=== PATIENT | male | born 1970 | race Caucasian/White ===

== ENCOUNTER 2018-12-07 11:48 | Observation (INO) | payer MEDICARE, SELFPAY ==
[2018-12-07] VITALS (40 sets, daily range): BP systolic 94–150; BP diastolic 64–101; PULSE 101–133; RESP 6–43; TEMP 36.6–37; O2SAT 92–100
--- NOTE | 2018-12-07 12:02 | DI.CT_ITS ---
SYMPTOM/DIAGNOSIS: LLQ ABD PAIN ABDOMEN AND PELVIC CT: CT examination of the abdomen and pelvis was performed with a bolus infusion of 100 cc's of Omnipaque 350. Images obtained through the lung bases are unremarkable. Liver, spleen and pancreas appear normal. Gallbladder and bile ducts are CT normal. Adrenals and kidneys appear normal. Abdominal aorta is of normal diameter and no major vascular abnormality is seen. Small bilateral fat containing inguinal hernias noted. Appendix appears normal. There is wall thickening of the descending colon with associated pericolonic fat edema. No evidence of perforation or abscess formation. The findings are consistent with uncomplicated diverticulitis. CONCLUSION: Findings consistent with diverticulitis of the mid descending colon. No evidence of perforation or abscess formation.
--- NOTE | 2018-12-07 12:11 | ED.GENADUL_ITS ---
Discharge Plan Disposition Patient Disposition: [facility] INPATIENT Condition: Good Discharge Details Chief Complaint: Palpitatns Clinical Impression: Diverticulitis Primary Care Provider: Andi Neff ED Provider: Zeb Vanessa Home Meds and New Rx's Prescriptions: No Action Flovent HFA 220 mcg/actuation HFA aerosol inhaler 1 puff IH BID RF: 0 mometasone 50 mcg/actuation spray,non-aerosol 2 spray JOSE DAILY RF: 0 Stiolto Respimat 2.5-2.5 mcg/actuation mist 1 inh IH BID RF: 0 albuterol sulfate [Proventil HFA] 90 mcg/actuation HFA aerosol inhaler 2 puff IH Q4H PRN (Reason: bronchospasm) Qty: 18 RF: 11 albuterol sulfate 2.5 mg/0.5 mL solution for nebulization 2.5 mg IH Q4H PRN (Reason: shortness of breath or wheezing) Qty: 100 RF: 5 ibuprofen [IBU] 800 mg tablet 800 mg PO Q8H PRN (Reason: pain) Qty: 90 RF: 2 ipratropium-albuterol 0.5 mg-3 mg(2.5 mg base)/3 mL solution for nebulization 3 ml Inhalation ONCE Qty: 3 RF: 0 cholecalciferol (vitamin D3) 5,000 unit capsule 5,000 unit PO DAILY Qty: 90 RF: 3 calcium carbonate 600 mg calcium (1,500 mg) tablet 600 mg PO BID Qty: 180 RF: 3 Medical Decision Making This is a pleasant 48-year-old male with a past medical history of COPD, diverticulitis and 2 abdominal hernia surgeries who presents today for evaluation of left lower quadrant pain and palpitations. He has had 4 days of left lower quadrant pain, notable decreased appetite since then. He has had no vomiting or diarrhea or melena. Over the last 2 days he has had mild palpitations and heart racing-like sensation. He denies any fever or chills. He was seen initially by his PCP who recommended they come in immediately for further evaluation. Abdominal exam demonstrates left lower quadrant reproducible tenderness, no testicular pain or tenderness. Differential includes diverticulitis with abscess, perforation, severe dehydration, pyelonephritis. We will rehydrate, evaluate for potential abdominal at etiology, as well as perform an ACS work-up secondary to his notable tachycardia and palpitations. Patient does not want anything for pain at this time. 1:17 PM On reassessment patient's heart rate has mildly improved from his initial 130s to currently 115. Fluids are still running. CT scan results have returned, and per Dr. Solitario of radiology there is evidence of diverticulitis without abscess. The patient still feels comfortable. He continues to deny any chest pain, shortness of breath, pleuritic chest pain, history of PE, or history of cardiac disease. Troponin is normal, he has no white count or bandemia, electrolytes are normal. TSH is normal. If the patient's mild tachycardia persists, I do feel that it may be beneficial for overnight admission/observation. We will give Cipro Flagyl here for his first dose for his diverticulitis 3:21 PM Patient continues to remain mildly tachycardic, review of previous vital signs demonstrate that he does have a component of chronic tachycardia, however with his new infection, continued mild tachycardia, I do feel that 24-hour o bservation. With IV antibiotics and fluids would certainly be reasonable. I discussed the case with Dr Rene. I have extensively reviewed the treatment plan with the patient. I have addressed all patient concerns at this time. I have also discussed the plan with the admitting physician and they agree with the current assessment and plan and have agreed to assume responsibility for the patient. All parties demonstrate verbal understanding and agreement with our assessment and plan at this time. EKG 11: 58 Rate 132, intervals normal, sinus tachycardia, inverted T wave in V1, no significant ST elevations or depressions, no significant Q waves. No evidence of STEMI HPI General Date/Time Provider Initiated Documentation: 12/07/18 11:49 . HPI Narrative: This is a 48-year-old male with a past medical history of COPD, who presents today for evaluation of abdominal pain and palpitations. He was seen by his PCP and recommended coming here. Over the last 4 days he has had notable left lower quadrant abdominal pain. He has had diverticulitis in the past. He states that this feels slightly similar to it. Pain has been present worsening over the last 4 days, no significant radiation to the right lower quadrant, or the epigastric region. He denies any chest pain or shortness of breath. His palpitations began 2 days ago for which she describes as a heart racing sensation, he feels that it is been relatively continuous. He denies any vomiting, diarrhea, melena, acholic stool, hematemesis, hematochezia. He denies any dysuria or increased urinary frequency. He denies any testicular or scrotal pain. He has no other complaints modifying factors at this time. Related Data Home Medications Medication Instructions Recorded Confirmed fluticasone propionate 220 1 puff IH BID 04/05/18 12/07/18 mcg/actuation HFA aerosol inhaler mometasone 50 mcg/actuation nasal 2 spray JOSE DAILY 04/05/18 12/07/18 spray tiotropium 2.5 mcg-olodaterol 2.5 1 inh IH BID gm 04/05/18 12/07/18 mcg/actuation mist for inhalation albuterol sulfate HFA 90 2 puff IH Q4H PRN #18 gm 06/22/18 12/07/18 mcg/actuation aerosol inhaler cholecalciferol (vitamin D3) 5,000 5,000 unit PO DAILY #90 cap 09/12/18 12/07/18 unit capsule calcium carbonate 600 mg calcium 600 mg PO BID #180 tab 09/13/18 12/07/18 (1,500 mg) tablet albuterol sulfate concentrate 2.5 2.5 mg IH Q4H PRN #100 each 11/29/18 12/07/18 mg/0.5 mL solution for nebulization ibuprofen 800 mg tablet 800 mg PO Q8H PRN #90 tab 11/29/18 12/07/18 Previous Rx's Medication Instructions Recorded albuterol sulfate HFA 90 2 puff IH Q4H PRN #18 gm 06/22/18 mcg/actuation aerosol inhaler cholecalciferol (vitamin D3) 5,000 5,000 unit PO DAILY #90 cap 09/12/18 unit capsule calcium carbonate 600 mg calcium 600 mg PO BID #180 tab 09/13/18 (1,500 mg) tablet albuterol sulfate concentrate 2.5 2.5 mg IH Q4H PRN #100 each 11/29/18 mg/0.5 mL solution for nebulization ibuprofen 800 mg tablet 800 mg PO Q8H PRN #90 tab 11/29/18 Allergies Allergy/AdvReac Type Severity Reaction Status Date / Time oxycodone HCl [From Percocet] AdvReac Unverified 12/07/18 11:55 General Stated Complaint: Palpitatns HALINA: 2 Review of Systems Review of Systems All systems reviewed & are unremarkable except as noted in HPI and below PFSH Surgical History Repair of inguinal hernia (~2007) Family History Mother Asthma Daughter Brain tumor Depression Social History Smoking/Tobacco Use Status: Former Tobacco Use Alcohol Intake: current Alcohol Intake frequency: holidays/special occasions only Drug use: Never Substance use type: does not use What type of physical activity do you participate in: walking Duration: 45-60 minutes/day Do you feel safe in your relationship?: Yes Exam Narrative Exam Narrative: 1.Const: Well-nourished, Well-developed, appearing stated age 2.Eyes: PERRL, no conjunctival injection, and symmetrical lids. 3.ENT: Atraumatic external nose and ears. Moist MM. Neck: Symmetric, trachea midline, No thyromegaly. 4.CVS: +S1/S2, No murmurs or gallops. Peripheral pulses 2+ and equal in all extremities. Brisk capillary refill in all extremities. 5.RESP: Unlabored respiratory effort. Clear to auscultation bilaterally. No wheezes rales or rhonchi 6.GI: Soft, Nondistended, No hepatosplenomegaly. Mild to moderate left lower quadrant abdominal tenderness. Negative obturator and psoas sign. Negative heel strike test. No flank or CVA tenderness. Testicular exam demonstrates normal male genitalia, circumcised penis, bilaterally descended testicles with a normal cremasteric reflex. No pain at McBurney's point, negative Wick sign. No significant left upper quadrant abdominal pain peer 7.MSK: Normocephalic/Atraumatic, Extremities w/o deformity or ttp No cyanosis or clubbing, Normal movement of all extremities 8.Skin: Warm, Dry. No rashes or lesions. 9.Neuro: uppers edge burnisher II-XII grossly intact. Sensation grossly intact, no focal neurologic deficits. 10.Psych: (AAO) x3. Appropriate mood and affect Course Vital Signs Temperature 36.6 C 12/07/18 11:51 Pulse 131 H 12/07/18 11:51 Respiratory Rate 20 12/07/18 11:51 Blood Pressure 105/72 12/07/18 11:51 Pulse Oximetry 97 12/07/18 11:51 Temperature 36.6 C 12/07/18 11:51 Temperature Source Skin 12/07/18 11:51 Pulse 131 H 12/07/18 11:51 Respiratory Rate 20 12/07/18 11:51 Blood Pressure 105/72 12/07/18 11:51 Blood Pressure Position Sitting 12/07/18 11:51 Pulse Oximetry 97 12/07/18 11:51 Oxygen Delivery Method Room Air 12/07/18 11:51 Oxygen Flow Rate 0 12/07/18 11:51
[2018-12-07 12:19] LABS: Abs Immature Grans 0.01 k/cumm (0.0-0.09); Absolute Basophil Count 0.07 k/cumm (0.0-0.2); Absolute Eosinophil Count 0.14 k/cumm (0.0-0.7); Absolute Lymphocyte Count 2.92 k/cumm (1.2-3.4); Absolute Monocyte Count 0.67 k/cumm (0.11-0.7); Absolute Neutrophil Count 4.84 k/cumm (1.2-6.7); Basophils % 0.8; Eosinophils % 1.6; HCT 44.1 % (40.0-50.0); HGB 14.6 g/dL (13.5-17.5); Immature Grans % 0.1; Lactate-non-spesis 0.9 mmol/l (0.6-1.4); Lymphocytes % 33.8; Mean Corp. HGB Concentration 33.1 g/dL (32.0-36.0); Mean Corpuscular Hemoglobin 29.7 pg (27.0-33.0); Mean Corpuscular Volume 89.8 fL (80-95); Mean Platelet Volume 10.8 fL (8.0-11.0); Monocytes % 7.7; Platelet Count 195 x1000/uL (130-400); RBC 4.91 m/cumm (4.50-6.00); RBC Distribution Width 12.9 % (11.8-14.1); White Blood Cell Count 8.65 k/cumm (4.4-10.8)
[2018-12-07] MEDS: Normal Saline 1,000 ML 1000 ML IV ×2 (12:39→14:30)
[2018-12-07 12:48] LABS: PTT Activated 24.1 sec (21.0-31.4); Prothrombin Time 9.7 sec (9.3-11.0)
[2018-12-07 12:51] LABS: ALT 26 U/L (12-78); AST 14 U/L (15-37); Albumin 3.5 g/dL (3.4-5.0); Alkaline Phosphatase 71 U/L (46-116); Anion Gap 6.4 mmol/L (3-11); BUN 10 mg/dL (7-18); Bilirubin, Total 0.4 mg/dL (0.2-1.0); CO2 31.6 mmol/L (21.0-32.0); CREATININE 0.76 mg/dL (0.70-1.30); Chloride 101 mmol/L (98-107); Glucose 105 mg/dL (70-100); Lipase 159 U/L (73-393); Potassium 3.9 mmol/L (3.5-5.1); Sodium 139 mmol/L (136-145); TSH (W/Ref FT4) 0.73 uIU/mL (0.358-3.74); Total Protein 7.4 g/dL (6.4-8.2)
[2018-12-07 12:57] LABS: Calcium 9.3 mg/dL (8.5-10.1)
[2018-12-07 12:58] LABS: Troponin I < 0.02 ng/mL (0.00-0.06)
[2018-12-07] MEDS: Omnipaque 350 MG/ML 100 ML BTL IJ (12:59)
[2018-12-07] MEDS: Albuterol/Ipratropium 3 ML UPD VIAL UPD (13:16)
[2018-12-07] MEDS: CIPROFLOXACIN 400 MG/200 ML BAG 200 MG IVPB (13:21)
[2018-12-07 13:57] LABS: Bilirubin Negative (Negative); Blood Negative (Negative); Clarity Clear; Glucose Negative (Negative); Ketones Negative (Negative); Leukocyte Esterase Negative (Negative); Nitrite Negative (Negative); Urobilinogen 0.2 EU/dL (Up TO 0.2); pH 7.5 (5-8)
[2018-12-07] MEDS: metroNIDAZOLE 500 MG/100 ML BAG 100 MG IVPB (14:30)
--- NOTE | 2018-12-07 15:36 | HPE_ITS ---
Date of service: 12/07/18 Time of Service: 15:29 Assessment and Plan (1) Diverticulitis: Current visit: Yes Status: Acute Uncomplicated, recurrent Diverticulitis. Clear liquid diet, pain control, IV Antibiotics, and IVFs. Patient does not appear toxic, and is currently comfortable. Tachycardia is likely combination of acute illness, pain, and mild dehydration in patient with significant underlying lung disease with a history of tachycardia during bouts of illness. ECG checked and benign, with negative cardiac enzymes. Monitor. (2) COPD (chronic obstructive pulmonary disease): Current visit: Yes Status: Chronic Continue home inhalers, with duonebs prn. Patient reports breathing is at baseline. (3) DVT prophylaxis: Current visit: Yes Status: Acute SC Lovenox. History of Present Illness Chief Complaint: Abdominal Pain Narrative: 48 year old man with past history of COPD, being admitted from [facility] Emergency Department with a diagnosis of Acute Diverticulitis. Mr. Malagon has a past medical history significant for ongoing Tobacco use, COPD, Depression, and Bipolar discorder. He also verbally reports a past history of diverticulitis. The patient reports a 4 day history of abdominal pain reminiscent of his prior episode(s) of Diverticulitis. He was seen by his primary care provider, noted to be tachycardic with significant pain, and refe rred to the Emergency Department. Work-up in the ED was remarkable for a normal CBC, essentially normal CMP, Urinalysis, Lipase, Lactate, and Troponin. CT scan of his abdomen confirmed the diagnosis of diverticulitis, located in mid descending colon, without any evidence of perforation or abscess. Given his tachycardia that failed to resolve with Fluid resuscitation the patient was referred for admission for further evaluation and treatment. Review of Systems Review of Systems All systems reviewed & are unremarkable except as noted in HPI and below PFSH Medical History Vitamin D deficiency (Chronic) Bipolar disorder (Chronic) Depression (Chronic) COPD (chronic obstructive pulmonary disease) (Chronic) Surgical History Repair of inguinal hernia (~2007) Family History Mother Asthma Daughter Brain tumor Depression Social History Smoking/Tobacco Use Status: Former Tobacco Use Alcohol Intake: current Alcohol Intake frequency: holidays/special occasions only Drug use: Never Substance use type: does not use What type of physical activity do you participate in: walking Duration: 45-60 minutes/day Do you feel safe in your relationship?: Yes Additional Social history: , with adult children. Ongoing tobacco use, 1/2 to 1 pack daily with prior 2 ppd history, approximate 55 pack year history. Reports prior ETOH excess, none in 20 years. Denies illicit drugs. Meds Home Medications Medication Instructions Recorded Confirmed Type fluticasone propionate 220 1 puff IH BID 04/05/18 12/07/18 History mcg/actuation HFA aerosol inhaler mometasone 50 mcg/actuation nasal 2 spray JOSE DAILY 04/05/18 12/07/18 History spray tiotropium 2.5 mcg-olodaterol 2.5 1 inh IH BID gm 04/05/18 12/07/18 History mcg/actuation mist for inhalation albuterol sulfate HFA 90 2 puff IH Q4H PRN #18 gm 06/22/18 12/07/18 Rx mcg/actuation aerosol inhaler cholecalciferol (vitamin D3) 5,000 5,000 unit PO DAILY #90 cap 09/12/18 12/07/18 Rx unit capsule calcium carbonate 600 mg calcium 600 mg PO BID #180 tab 09/13/18 12/07/18 Rx (1,500 mg) tablet albuterol sulfate concentrate 2.5 2.5 mg IH Q4H PRN #100 each 11/29/18 12/07/18 Rx mg/0.5 mL solution for nebulization ibuprofen 800 mg tablet 800 mg PO Q8H PRN #90 tab 11/29/18 12/07/18 Rx ipratropium-albuterol 0.5 mg-3 3 ml INHALATION ONCE #3 ml 12/07/18 12/07/18 Clinic mg(2.5 mg base)/3 mL nebulization soln Allergies Allergy/AdvReac Type Severity Reaction Status Date / Time oxycodone HCl [From Percocet] AdvReac Unverified 12/07/18 11:55 Exam Narrative Exam Narrative: General: Patient appears comfortable, AAOX3, NAD Neck: Supple CV: Regular, tachycardic, S1S2, No rubs, murmurs, or gallops. Distant heart sounds. Pulmonary: Clear to auscultation bilaterally, no crackle or rhonchi. Mild diffuse wheezing. Abdomen: + Bowel Sounds, soft, nontender, nondistended Vascular: No lower extremity edema Neurologic: CN II-XII grossly intact. No focal deficits. Psych: Normal mood and affect. Results Labs : 12/07/18 12:10 12/07/18 12:10 Laboratory Results - last 24 hr 12/07/18 12/07/18 12/07/18 12:10 12:10 12:10 WBC 8.65 RBC 4.91 Hgb 14.6 Hct 44.1 MCV 89.8 MCH 29.7 MCHC 33.1 RDW 12.9 Plt Count 195 MPV 10.8 Immature Gran % 0.1 Neutrophils % 56.0 Lymphocytes % 33.8 Monocytes % 7.7 Eosinophils % 1.6 Basophils % 0.8 Absolute Neutrophils 4.84 Absolute Lymphocytes 2.92 Absolute Monocytes 0.67 Absolute Eosinophils 0.14 Absolute Basophils 0.07 PT INR APTT Sodium 139 Potassium 3.9 Chloride 101 Carbon Dioxide 31.6 Anion Gap 6.4 BUN 10 Creatinine 0.76 Estimated GFR/1.73 m2 >= 60.00 Glucose 105 H Lactate 0.9 Calcium 9.3 Total Bilirubin 0.4 AST 14 L ALT 26 Alkaline Phosphatase 71 Troponin I < 0.02 Total Protein 7.4 Albumin 3.5 Lipase 159 TSH 0.73 Urine Color Urine Clarity Urine pH Ur Specific [place] Urine Protein Urine Ketones Urine Blood Urine Nitrite Urine Bilirubin Urine Urobilinogen Ur Leukocyte Esterase Urine Glucose Patient ABO/Rh Antibody Screen 12/07/18 12/07/18 12/07/18 12:10 12:25 13:40 WBC RBC Hgb Hct MCV MCH MCHC RDW Plt Count MPV Immature Gran % Neutrophils % Lymphocytes % Monocytes % Eosinophils % Basophils % Absolute Neutrophils Absolute Lymphocytes Absolute Monocytes Absolute Eosinophils Absolute Basophils PT 9.7 INR 1.0 APTT 24.1 Sodium Potassium Chloride Carbon Dioxide Anion Gap BUN Creatinine Estimated GFR/1.73 m2 Glucose Lactate Calcium Total Bilirubin AST ALT Alkaline Phosphatase Troponin I Total Protein Albumin Lipase TSH Urine Color Yellow Urine Clarity Clear Urine pH 7.5 Ur Specific [place] 1.010 Urine Protein Negative Urine Ketones Negative Urine Blood Negative Urine Nitrite Negative Urine Bilirubin Negative Urine Urobilinogen 0.2 Ur Leukocyte Esterase Negative Urine Glucose Negative Patient ABO/Rh O Positive Antibody Screen Negative Last Vital Signs Temp 36.6 C 12/07/18 11:51 Pulse 107 H 12/07/18 13:45 Resp 15 12/07/18 13:50 BP 114/81 12/07/18 13:45 Pulse Ox 97 12/07/18 13:50
[2018-12-07] MEDS: Enoxaparin 40 MG/0.4 ML SYR SC (16:45)
--- NOTE | 2018-12-07 18:44 | NUR.NOTE ---
Nursing Note: Pt to MS floor from ER at 1610. Family at bedside. Pt transferred from wheelchair to bathroom and bed independently; steady gait with increased SOB noted. A&Ox3. VSS 95% 2L NC. RT alerted to pt's arrival. Pt on Cpap and O2 therapy at home. Pt and family oriented to MS floor, call kay, etc. Call kay within reach. RN will continue to monitor.
[2018-12-07] MEDS: Calcium Carbonate 1.5 GM TAB PO (19:50)
[2018-12-07] MEDS: Mometasone 220 MCG 14 DOSE INHALER 2 PUFF IH (19:51)
[2018-12-07] MEDS: Normal Saline 1,000 ML 150 ML IV (21:12)
[2018-12-07] MEDS: metroNIDAZOLE 500 MG TAB PO (22:25)
[2018-12-08] MEDS: Normal Saline Flush 10 ML SYR IVP (00:04)
[2018-12-08] MEDS: Normal Saline 1,000 ML 150 ML IV ×2 (00:04→05:08)
[2018-12-08] MEDS: CIPROFLOXACIN 400 MG/200 ML BAG 200 MG IVPB (03:16)
[2018-12-08] MEDS: metroNIDAZOLE 500 MG TAB PO (05:08)
[2018-12-08 07:17] LABS: Abs Immature Grans 0.01 k/cumm (0.0-0.09); Absolute Basophil Count 0.04 k/cumm (0.0-0.2); Absolute Eosinophil Count 0.17 k/cumm (0.0-0.7); Absolute Lymphocyte Count 2.09 k/cumm (1.2-3.4); Absolute Monocyte Count 0.51 k/cumm (0.11-0.7); Basophils % 0.7; HCT 36.5 % (40.0-50.0); Immature Grans % 0.2; Lymphocytes % 36.3; Mean Corp. HGB Concentration 32.9 g/dL (32.0-36.0); Mean Corpuscular Volume 91.3 fL (80-95); Mean Platelet Volume 11.1 fL (8.0-11.0); Monocytes % 8.9; Neutrophils % 50.9; Platelet Count 161 x1000/uL (130-400); RBC Distribution Width 12.6 % (11.8-14.1); White Blood Cell Count 5.76 k/cumm (4.4-10.8)
[2018-12-08 07:19] LABS: Absolute Neutrophil Count 2.93 k/cumm (1.2-6.7)
[2018-12-08 07:20] VITALS: BP 115/84; PULSE 87; RESP 18; TEMP 36.6; O2SAT 98
[2018-12-08] MEDS: Ibuprofen 800 MG TAB PO (07:31)
[2018-12-08] MEDS: Calcium Carbonate 1.5 GM TAB PO (07:31)
[2018-12-08 07:35] LABS: Anion Gap 4.7 mmol/L (3-11); BUN 5 mg/dL (7-18); CO2 32.3 mmol/L (21.0-32.0); CREATININE 0.74 mg/dL (0.70-1.30); Chloride 106 mmol/L (98-107); Glucose 94 mg/dL (70-100); Magnesium 1.8 mg/dL (1.8-2.4); Potassium 3.8 mmol/L (3.5-5.1); Sodium 143 mmol/L (136-145)
[2018-12-08 07:47] LABS: Calcium 8.6 mg/dL (8.5-10.1)
[2018-12-08 08:23] VITALS: O2SAT 98
[2018-12-08] MEDS: Mometasone 220 MCG 14 DOSE INHALER 2 PUFF IH (09:13)
[2018-12-08] MEDS: Potassium Chloride 20 MEQ TABCR PO (10:03)
[2018-12-08] MEDS: Magnesium Oxide 400 MG TAB PO (10:03)
--- NOTE | 2018-12-08 11:33 | PDOC.CMPRO ---
Care Management Progress Note Jakob was preparing for discharge when CM met with him. He was sitting on the side of his bed, and was pleasant in interaction. Jakob shared no concerns. Kelsi RT reported she would be following Jakob in the community to help support Jakob attaining portable oxygen through [employer]. Jakob shared appreciation of his care and reported he would be transporting via private vehicle with his .
--- NOTE | 2018-12-08 12:04 | DSE_ITS ---
DS: Diagnosis Discharge Diagnosis (1) Diverticulitis: Status: Acute (2) COPD (chronic obstructive pulmonary disease): Status: Chronic Discharge Plan Disposition Patient Disposition: HOME Condition: Improving Discharge Details Reason For Visit: DIVERTICULITIS Admit Date/Time: 12/07/18 14:49 Admit Provider: Shilo Rene Attending Provider: Shilo Rene Primary Care Provider: Andi Neff Hospital Course Hospital Course: Chief Complaint: Abdominal Pain, Tachycardia HPI: 48 year old man with past history of COPD, admitted from [facility] Emergency Department on 12/07 with a diagnosis of Acute Diverticulitis. Mr. Malagon has a past medical history significant for ongoing Tobacco use, COPD, Depression, and Bipolar discorder. He also verbally reports a past history of diverticulitis. The patient reports a 4 day history of abdominal pain reminiscent of his prior episode(s) of Diverticulitis. He was seen by his primary care provider, noted to be tachycardic with significant pain, and referred to the Emergency Department. Work-up in the ED was remarkable for a normal CBC, essentially normal CMP, Urinalysis, Lipase, Lactate, and Troponin. CT scan of his abdomen confirmed the diagnosis of diverticulitis, located in mid descending colon, without any evidence of perforation or abscess. Given his tachycardia that failed to resolve with Fluid resuscitation the patient was referred for admission for further evaluation and treatment. This morning Mr. Malagon continues to be afebrile and with a normal WBC count. His HR is vastly improved, and he reports overall improvement in his abdominal pain as well. No other overnight events reported. Hospital Course: (1) Diverticulitis: Uncomplicated, recurrent Diverticulitis. Appears improved. Will continue with antibiotics for a planned 10 day course of Cipro/Metronidazole. Recommend Clear liquid diet at home with slow progression as pain abates, with close follow-up as an outpatient. Also, as this is a recurrent problem he may require further evaluation by surgery as an outpatient. Patient remains nontoxic, and is currently comfortable. Tachycardia is likely combination of acute illness, pain, and mild dehydration in patient with significant underlying lung disease with a history of tachycardia during bouts of illness, vastly improved/resolved this morning. ECG checked and benign, with negative cardiac enzymes as well. (2) COPD (chronic obstructive pulmonary disease): Continue home inhalers, with duonebs prn. Patient reports breathing is at baseline. (3) DVT prophylaxis: Was maintained on SC Lovenox. Home Meds and New Rx's Prescriptions: New ciprofloxacin HCl 500 mg tablet 500 mg PO BID Qty: 18 RF: 0 metronidazole 500 mg tablet 500 mg PO TID Qty: 27 RF: 0 Continued Flovent HFA 220 mcg/actuation HFA aerosol inhaler 1 puff IH BID RF: 0 mometasone 50 mcg/actuation spray,non-aerosol 2 spray JOSE DAILY RF: 0 Stiolto Respimat 2.5-2.5 mcg/actuation mist 1 inh IH BID RF: 0 albuterol sulfate [Proventil HFA] 90 mcg/actuation HFA aerosol inhaler 2 puff IH Q4H PRN (Reason: bronchospasm) Qty: 18 RF: 11 albuterol sulfate 2.5 mg/0.5 mL solution for nebulization 2.5 mg IH Q4H PRN (Reason: shortness of breath or wheezing) Qty: 100 RF: 5 ibuprofen [IBU] 800 mg tablet 800 mg PO Q8H PRN (Reason: pain) Qty: 90 RF: 2 ipratropium-albuterol 0.5 mg-3 mg(2.5 mg base)/3 mL solution for nebulization 3 ml Inhalation ONCE Qty: 3 RF: 0 cholecalciferol (vitamin D3) 5,000 unit capsule 5,000 unit PO DAILY Qty: 90 RF: 3 calcium carbonate 600 mg calcium (1,500 mg) tablet 600 mg PO BID Qty: 180 RF: 3 Discharge Instructions Additional Instructions: Please see your primary care provider within 1 week of discharge Stand Alone Forms: Nursing Discharge Form Referrals: Andi Neff [Primary Care Provider] - 12/13/18 3:00 pm Activity:: No strenuous activity Equipment/Supplies:: No Equipment Needed Diet:: Liquid diet until pain has improved/resolved Discharge Orders Discharge Orders: Discharge Order (Routine); Ordered 12/08/18 Ordered By: Shilo Rene DS: Data Vitals/I&O Vitals and I&O: Vital Signs Temperature 36.6 C 12/08/18 07:20 Temperature Source Tympanic 12/08/18 07:20 Pulse 87 12/08/18 07:20 Pulse Rhythm Regular 12/08/18 07:32 Pulse 109 H 12/07/18 15:57 Respiratory Rate 18 12/08/18 07:20 Respiratory Effort Non-Labored 12/08/18 07:32 Respiratory Depth Normal 12/08/18 07:32 Respiratory Pattern Normal 12/08/18 07:32 Blood Pressure 115/84 12/08/18 07:20 Blood Pressure Mean 72 12/07/18 15:57 Blood Pressure Position Sitting 12/07/18 11:51 Pulse Oximetry 98 12/08/18 08:23 Oxygen Delivery Method Nasal Cannula 12/08/18 08:23 Oxygen Flow Rate 2 12/08/18 08:23 Pain Level 0 12/08/18 07:20 Comment 12/08/18 07:20 Intake & Output 12/07/18 12/07/18 12/08/18 11:59 23:59 11:59 Intake Total 3490 / 3490 3580.0 / 3580.0 Output Total 900 / 900 2700 / 2700 Balance 2590 / 2590 880.0 / 880.0 Weight 79.379 kg 79.379 kg Intake: IV 2710 / 2710 2330.0 / 2330.0 Oral 780 / 780 1250 / 1250 Output: Urine 900 / 900 2700 / 2700 Other: Urine Color Yellow Pale Yellow Urine Appearance Clear Clear Urine Odor Normal Normal Comment Pt reports frequency with urination; no other sx. reported. Pt removed hat from toilet. Urine clear and yellow. Voiding Methods Urinal Urinal Completed studies during hospitalization [Text1]: Exam(s) a CT:CT abdomen & pelvis w SYMPTOM/DIAGNOSIS: LLQ ABD PAIN ABDOMEN AND PELVIC CT: CT examination of the abdomen and pelvis was performed with a bolus infusion of 100 cc's of Omnipaque 350. Images obtained through the lung bases are unremarkable. Liver, spleen and pancreas appear normal. Gallbladder and bile ducts are CT normal. Adrenals and kidneys appear normal. Abdominal aorta is of normal diameter and no major vascular abnormality is seen. Small bilateral fat containing inguinal hernias noted. Appendix appears normal. There is wall thickening of the descending colon with associated pericolonic fat edema. No evidence of perforation or abscess formation. The findings are consistent with uncomplicated diverticulitis. CONCLUSION: Findings consistent with diverticulitis of the mid descending colon. No evidence of perforation or abscess formation. Labs on day of discharge: Labs from last 24 hours 12/08/18 12/08/18 12/07/18 06:25 06:25 13:40 WBC 5.76 D RBC 4.00 L Hgb 12.0 L D Hct 36.5 L MCV 91.3 MCH 30.0 MCHC 32.9 RDW 12.6 Plt Count 161 MPV 11.1 H Immature Gran % 0.2 Neutrophils % 50.9 Lymphocytes % 36.3 Monocytes % 8.9 Eosinophils % 3.0 Basophils % 0.7 Absolute Neutrophils 2.93 Absolute Lymphocytes 2.09 Absolute Monocytes 0.51 Absolute Eosinophils 0.17 Absolute Basophils 0.04 PT INR APTT Sodium 143 Potassium 3.8 Chloride 106 Carbon Dioxide 32.3 H Anion Gap 4.7 BUN 5 L Creatinine 0.74 Estimated GFR/1.73 m2 >= 60.00 Glucose 94 Lactate Calcium 8.6 Magnesium 1.8 Total Bilirubin AST ALT Alkaline Phosphatase Troponin I Total Protein Albumin Lipase TSH Urine Color Yellow Urine Clarity Clear Urine pH 7.5 Ur Specific [place] 1.010 Urine Protein Negative Urine Ketones Negative Urine Blood Negative Urine Nitrite Negative Urine Bilirubin Negative Urine Urobilinogen 0.2 Ur Leukocyte Esterase Negative Urine Glucose Negative Patient ABO/Rh Antibody Screen 12/07/18 12/07/18 12/07/18 12:25 12:10 12:10 WBC 8.65 RBC 4.91 Hgb 14.6 Hct 44.1 MCV 89.8 MCH 29.7 MCHC 33.1 RDW 12.9 Plt Count 195 MPV 10.8 Immature Gran % 0.1 Neutrophils % 56.0 Lymphocytes % 33.8 Monocytes % 7.7 Eosinophils % 1.6 Basophils % 0.8 Absolute Neutrophils 4.84 Absolute Lymphocytes 2.92 Absolute Monocytes 0.67 Absolute Eosinophils 0.14 Absolute Basophils 0.07 PT 9.7 INR 1.0 APTT 24.1 Sodium Potassium Chloride Carbon Dioxide Anion Gap BUN Creatinine Estimated GFR/1.73 m2 Glucose Lactate Calcium Magnesium Total Bilirubin AST ALT Alkaline Phosphatase Troponin I Total Protein Albumin Lipase TSH Urine Color Urine Clarity Urine pH Ur Specific [place] Urine Protein Urine Ketones Urine Blood Urine Nitrite Urine Bilirubin Urine Urobilinogen Ur Leukocyte Esterase Urine Glucose Patient ABO/Rh O Positive Antibody Screen Negative 12/07/18 12/07/18 12:10 12:10 WBC RBC Hgb Hct MCV MCH MCHC RDW Plt Count MPV Immature Gran % Neutrophils % Lymphocytes % Monocytes % Eosinophils % Basophils % Absolute Neutrophils Absolute Lymphocytes Absolute Monocytes Absolute Eosinophils Absolute Basophils PT INR APTT Sodium 139 Potassium 3.9 Chloride 101 Carbon Dioxide 31.6 Anion Gap 6.4 BUN 10 Creatinine 0.76 Estimated GFR/1.73 m2 >= 60.00 Glucose 105 H Lactate 0.9 Calcium 9.3 Magnesium Total Bilirubin 0.4 AST 14 L ALT 26 Alkaline Phosphatase 71 Troponin I < 0.02 Total Protein 7.4 Albumin 3.5 Lipase 159 TSH 0.73 Urine Color Urine Clarity Urine pH Ur Specific [place] Urine Protein Urine Ketones Urine Blood Urine Nitrite Urine Bilirubin Urine Urobilinogen Ur Leukocyte Esterase Urine Glucose Patient ABO/Rh Antibody Screen [facility] Medical History Vitamin D deficiency (Chronic) Bipolar disorder (Chronic) Depression (Chronic) COPD (chronic obstructive pulmonary disease) (Chronic) Surgical History Repair of inguinal hernia (~2007) Family History Mother Asthma Daughter Brain tumor Depression Social History Smoking/Tobacco Use Status: Former Tobacco Use Alcohol Intake: current Alcohol Intake frequency: holidays/special occasions only Drug use: Never Substance use type: does not use What type of physical activity do you participate in: walking Duration: 45-60 minutes/day Do you feel safe in your relationship?: Yes Additional Social history: , with adult children. Ongoing tobacco use, 1/2 to 1 pack daily with prior 2 ppd history, approximate 55 pack year history. Reports prior ETOH excess, none in 20 years. Denies illicit drugs.
== END 2018-12-08 12:50 | disposition home or self-care (01) ==
LOC: ER 15:30 → MS 16:16
PROVIDERS: Admitting Provider Internal Medicine; Emergency Provider Student in an Organized Health Care Education/Training Program; PCP Family Medicine; Visit Provider Internal Medicine
DX: K57.92 Diverticulitis of intestine, part unspecified, without perforation or abscess without bleeding (principal); R10.32 Left lower quadrant pain; R00.0 Tachycardia, unspecified; E86.0 Dehydration; J44.9 Chronic obstructive pulmonary disease, unspecified; F17.210 Nicotine dependence, cigarettes, uncomplicated
CPT/HCPCS: 36415; 80048; 80053; 83690; 86850; 86900; 86901; 93005; 94640; 96361; 96365; 96367; 99217; 99219; 99285; J1650; 74177; 81003; 83605; 83735; 84443; 84484; 85025; 85610; 85730; 93010; G0378; J0744; J3490; J7620

== ENCOUNTER 2022-04-07 10:35 | Inpatient (IN) | payer MEDICARE, MEDICAID, SELFPAY ==
[2022-04-07] VITALS (77 sets, daily range): BP systolic 97–183; BP diastolic 64–129; PULSE 86–167; RESP 1–25; TEMP 36.4–37.4; O2SAT 83–98
--- NOTE | 2022-04-07 10:30 | DI.RAD_ITS ---
Exam(s) XR PORTABLE CHEST AP EXAM: XR PORTABLE CHEST AP CLINICAL HISTORY: shortness of breath, r/o acute disease TECHNIQUE: 2D digital imaging was performed. COMPARISON: CR CHEST 2 VIEWS PA,LAT from 02/06/2017 CR CHEST 2 VIEWS PA,LAT from 09/23/[address] ABDOMEN PELVIS W from 12/07/2018 FINDINGS: LUNGS: Severe emphysematous changes and scarring greatest in the upper lobes.. Superimposed increase d densities bilateral bases could represent bilateral pneumonia. No effusion is visible. HEART: Normal. AORTA: Normal. BONES: Unremarkable for age. Soft tissues: Unremarkable. IMPRESSION: Severe emphysematous changes with question of superimposed bibasilar infiltrates. DATA REPOSITORY: RADIATION DOSE DELIVERED:
--- NOTE | 2022-04-07 10:30 | RT.EKG_ITS ---
APPROVED REPORT Exam: Resting ECG Reason for Exam: difficulty breathing Patient Location: E HR:144 bpm ECG Measurements Heart Rate 144 AXIS MD 113 P 77 QRSd 91 QRS 80 QT 257 T 52 QTc 398 Conclusion Sinus tachycardia...rate> 99. Sinus. No STEMI. I have reviewed and interpreted ECG and agree with software generated interpretation.
--- NOTE | 2022-04-07 10:43 | W.ED.GENAD ---
Discharge Plan Disposition Patient Disposition: [facility] INPATIENT Condition: Improving Discharge Details Clinical Impression: Acute exacerbation of chronic obstructive pulmonary disease, Pneumonia Admit Date/Time: 04/07/22 13:15 Admit Provider: Ki Paul Attending Provider: Ki Paul Primary Care Provider: Lexie Valencia ED Provider: Valencia Walters Discharge Data Discharge Date/Time-TO BE ENTERED AT DEPARTURE: 04/07/22 14:17 Medical Decision Making 1035 -- 52-year-old male with a history of COPD chronically on 3L NC, former tobacco smoker, sleep apnea, bipolar disorder, hyperlipidemia, ADD presents for shortness of breath this morning. EMS reported O2 sat 90% with diminished breath sounds and wheezing throughout and placed on CPAP and given IV Solu-Medrol and DuoNeb with improvement of oxygen saturation to 98% prior to arrival. Blood pressure hypertensive with systolic between 160s and 180s and diastolic in the 100s on arrival. Heart rate 130s to 140s and sinus tachycardia. He is afebrile. Oxygen saturation 94% on CPAP. Respiratory at bedside and placed on BiPAP and will continue albuterol neb. arrived shortly after and provided patient's POLST form which notes that he is DNR/DNI as of January 2022. This was confirmed with patient at bedside. 1100 --patient endorsed feeling anxious and nauseous and dry heaving and taken off BiPAP briefly. O2 sat decreased to 70% on NC. Given a dose of IV Zofran and confirmed no history of allergy to morphine and a dose of IV morphine ordered. at bedside who states that patient had a pneumothorax following a ruptured bleb in August 16 in [place]. No recent hospitalization in the last 3 months. She confirms that patient is DNR/DNI but would like treatment for COPD and pneumonia if diagnosed. She states he would be agreeable to admission. 1200 -- Labs reviewed. White blood cell count 14. ABG notes pH of 7.25, PCO2 68, PO2 37. Lactate 2.1. Troponin negative. BNP within normal limits. Fluvid negative. Chest x-ray notes severe emphysematous changes but no evidence of pneumothorax. There is also questionable bibasilar infiltrates. In the setting of leukocytosis and report of cough and recent sick contacts, will treat for pneumonia. Patient appears much more comfortable and no signs of respiratory distress. Will continue on BiPAP at this time heart rate remains tachycardic. states that patient has a history of tachycardia for which he takes diltiazem. She denies any known history of atrial fibrillation. Heart rate has been sinus on the monitor. We will give a dose of patient's p.o. diltiazem. 1300 --repeat ABG notes improvement of pH to 7.38, PCO2 improved to 56 and PO2 92. Patient is agreeable with plan for admission for acute COPD exacerbation and possible pneumonia. Case discussed with hospitalist who accepts patient for admission. Medical Records Medical records reviewed: Yes I reviewed the patient's medical records. Imaging Data Radiologic Study: Radiologist's impression: XR PORTABLE CHEST AP CLINICAL HISTORY:? shortness of breath, r/o acute disease TECHNIQUE:? 2D digital imaging was performed. COMPARISON:? CR CHEST 2 VIEWS PA,LAT from 02/06/2017 CR CHEST 2 VIEWS PA,LAT from 09/23/[address] ABDOMEN ? PELVIS W from 12/07/2018 FINDINGS: LUNGS: Severe emphysematous changes and scarring greatest in the upper lobes..? Superimposed increased densities bilateral bases could represent bilateral pneumonia.? No effusion is visible. HEART: Normal. AORTA: Normal. BONES: Unremarkable for age.? Soft tissues: Unremarkable. IMPRESSION: Severe emphysematous changes with question of superimposed bibasilar infiltrates.? Lab Data Lab results reviewed: Yes I reviewed the patient's lab results. Labs: 04/07/22 12:12 Blood Blood Culture - Pending 04/07/22 12:12 Blood Blood Culture - Pending Laboratory Tests Range/Units 04/07/22 04/07/22 04/07/22 10:43 10:43 10:43 WBC (4.4-10.8) 10^3/uL 14.02 H RBC (4.36-5.78) 10^6/uL 4.84 Hgb (13.5-17.5) g/dL 14.1 Hct (40.0-50.0) % 43.6 MCV (80-95) fL 90 MCH (27.0-33.0) pg 29.1 MCHC (32.0-36.0) % 32.3 RDW (11.8-14.1) % 12.6 Plt Count (130-400) 10^3/uL 208 MPV (8.0-11.0) fL 11.0 Immature Gran % 0.4 Neutrophils % 55.7 Lymphocytes % 32.9 Monocytes % 9.6 Eosinophils % 0.6 Basophils % 0.8 Nucleated RBC % (0.0-0.3) % 0.0 Absolute Neutrophils (1.2-6.7) 10^3/uL 7.81 H Absolute Lymphocytes (1.2-3.4) 10^3/uL 4.61 H Absolute Monocytes (0.1-0.8) 10^3/uL 1.35 H Absolute Eosinophils (0.0-0.7) 10^3/uL 0.08 Absolute Basophils (0.0-0.2) 10^3/uL 0.11 ABG Sample Site ABG pH (7.35-7.45) ABG pCO2 (35-45) mmHg ABG pO2 (80-105) mmHg ABG HCO3 (22-26) mmol/L ABG Total CO2 (23-27) mmol/L ABG O2 Saturation (95-98) % ABG Base Excess (-2-3) mmol/L Oxygen Liter Flow L FiO2 % Sodium (136-145) mmol/L 143 Potassium (3.5-5.1) mmol/L 3.7 Chloride (98-107) mmol/L 103 Carbon Dioxide (21.0-32.0) mmol/L 35.8 H Anion Gap (3-11) mmol/L 4.2 BUN (7-18) mg/dL 14 Creatinine (0.70-1.30) mg/dL 1.0 Est GFR (CKD-EPI 2020) (mL/min/1.73m2) 89.44 Glucose (74-106) mg/dL 115 H Calcium (8.5-10.1) mg/dL 8.9 Magnesium (1.8-2.4) mg/dL 1.8 Total Bilirubin (0.2-1.0) mg/dL 0.3 AST (15-37) U/L 15 ALT (16-63) U/L 32 Alkaline Phosphatase (46-116) U/L 84 Troponin I (<or=60) ng/L < 50 NT-Pro-B Natriuret Pep (<300) pg/mL 41 Total Protein (6.4-8.2) g/dL 7.8 Albumin (3.4-5.0) g/dL 4.1 COVID-19 Source SARS-CoV-2 (PCR) (Negative) Influenza Type A (PCR) (Negative) Influenza Type B (PCR) (Negative) RSV (PCR) (Negative) Range/Units 04/07/22 04/07/22 04/07/22 10:43 11:03 11:09 WBC (4.4-10.8) 10^3/uL RBC (4.36-5.78) 10^6/uL Hgb (13.5-17.5) g/dL Hct (40.0-50.0) % MCV (80-95) fL MCH (27.0-33.0) pg MCHC (32.0-36.0) % RDW (11.8-14.1) % Plt Count (130-400) 10^3/uL MPV (8.0-11.0) fL Immature Gran % Neutrophils % Lymphocytes % Monocytes % Eosinophils % Basophils % Nucleated RBC % (0.0-0.3) % Absolute Neutrophils (1.2-6.7) 10^3/uL Absolute Lymphocytes (1.2-3.4) 10^3/uL Absolute Monocytes (0.1-0.8) 10^3/uL Absolute Eosinophils (0.0-0.7) 10^3/uL Absolute Basophils (0.0-0.2) 10^3/uL ABG Sample Site Right Radial Cancelled ABG pH (7.35-7.45) 7.25 L Cancelled ABG pCO2 (35-45) mmHg 68 H* Cancelled ABG pO2 (80-105) mmHg 37 L* Cancelled ABG HCO3 (22-26) mmol/L 30 H Cancelled ABG Total CO2 (23-27) mmol/L 28 H Cancelled ABG O2 Saturation (95-98) % 64 L Cancelled ABG Base Excess (-2-3) mmol/L 3 Cancelled Oxygen Liter Flow L BIPAP 12/ Cancelled FiO2 % 40 Cancelled Sodium (136-145) mmol/L Potassium (3.5-5.1) mmol/L Chloride (98-107) mmol/L Carbon Dioxide (21.0-32.0) mmol/L Anion Gap (3-11) mmol/L BUN (7-18) mg/dL Creatinine (0.70-1.30) mg/dL Est GFR (CKD-EPI 2020) (mL/min/1.73m2) Glucose (74-106) mg/dL Calcium (8.5-10.1) mg/dL Magnesium (1.8-2.4) mg/dL Total Bilirubin (0.2-1.0) mg/dL AST (15-37) U/L ALT (16-63) U/L Alkaline Phosphatase (46-116) U/L Troponin I (<or=60) ng/L NT-Pro-B Natriuret Pep (<300) pg/mL Total Protein (6.4-8.2) g/dL Albumin (3.4-5.0) g/dL COVID-19 Source Not Applicable SARS-CoV-2 (PCR) (Negative) Negative Influenza Type A (PCR) (Negative) Negative Influenza Type B (PCR) (Negative) Negative RSV (PCR) (Negative) Negative Range/Units 04/07/22 12:30 WBC (4.4-10.8) 10^3/uL RBC (4.36-5.78) 10^6/uL Hgb (13.5-17.5) g/dL Hct (40.0-50.0) % MCV (80-95) fL MCH (27.0-33.0) pg MCHC (32.0-36.0) % RDW (11.8-14.1) % Plt Count (130-400) 10^3/uL MPV (8.0-11.0) fL Immature Gran % Neutrophils % Lymphocytes % Monocytes % Eosinophils % Basophils % Nucleated RBC % (0.0-0.3) % Absolute Neutrophils (1.2-6.7) 10^3/uL Absolute Lymphocytes (1.2-3.4) 10^3/uL Absolute Monocytes (0.1-0.8) 10^3/uL Absolute Eosinophils (0.0-0.7) 10^3/uL Absolute Basophils (0.0-0.2) 10^3/uL ABG Sample Site Left Radial ABG pH (7.35-7.45) 7.32 L ABG pCO2 (35-45) mmHg 56 H ABG pO2 (80-105) mmHg 92 ABG HCO3 (22-26) mmol/L 29 H ABG Total CO2 (23-27) mmol/L 26 ABG O2 Saturation (95-98) % 97 ABG Base Excess (-2-3) mmol/L 3 Oxygen Liter Flow L BIPAP 12/5 FiO2 % 40 Sodium (136-145) mmol/L Potassium (3.5-5.1) mmol/L Chloride (98-107) mmol/L Carbon Dioxide (21.0-32.0) mmol/L Anion Gap (3-11) mmol/L BUN (7-18) mg/dL Creatinine (0.70-1.30) mg/dL Est GFR (CKD-EPI 2020) (mL/min/1.73m2) Glucose (74-106) mg/dL Calcium (8.5-10.1) mg/dL Magnesium (1.8-2.4) mg/dL Total Bilirubin (0.2-1.0) mg/dL AST (15-37) U/L ALT (16-63) U/L Alkaline Phosphatase (46-116) U/L Troponin I (<or=60) ng/L NT-Pro-B Natriuret Pep (<300) pg/mL Total Protein (6.4-8.2) g/dL Albumin (3.4-5.0) g/dL COVID-19 Source SARS-CoV-2 (PCR) (Negative) Influenza Type A (PCR) (Negative) Influenza Type B (PCR) (Negative) RSV (PCR) (Negative) ECG Data Attestation: I personally reviewed and interpreted this ECG (s) as follows: Interpretation: rate of 144, sinus, no stemi. HPI General Mode of arrival: ambulatory. Date/Time Provider Initiated Documentation: 04/07/22 10:41. Limitations to Documentation: no limitations. Information obtained by: patient. HPI Narrative: Pt is a 52yo M with a history of COPD, CHF, ADD, pneumothorax who presents for shortness of breath this morning. present in the ER shortly after patient arrival by ambulance and had a COLST form which noted that patient is DNR/DNI. Patient states he developed shortness of breath this morning. He also admits to cough but denies any known fever. He states he is not vaccinated for COVID. EMS reported that patient's oxygen saturation was 90% on room air on arrival with diffuse wheezing but equal breath sounds throughout. Patient was placed on cpap, given a DuoNeb, albuterol and 125 mg Solu-Medrol in route with improvement of oxygen saturation to 98%. Related Data Home Medications Medication Instructions Recorded Confirmed calcium carbonate 600 mg calcium 600 mg PO BID #180 tabs 09/13/18 04/07/22 (1,500 mg) tablet albuterol sulfate 2.5 mg/0.5 mL 2.5 mg (0.5 mL) inhalation Q4H PRN 01/30/22 04/07/22 solution for nebulization shortness of breath or wheezing #100 ea albuterol sulfate 90 mcg/actuation 2 puff inhalation Q4H PRN 01/30/22 04/07/22 aerosol inhaler (Proventil HFA) bronchospasm #18 grams alendronate 70 mg tablet 70 mg PO QWEEK #13 tabs 01/30/22 04/07/22 cholecalciferol (vitamin D3) 125 5,000 unit PO DAILY #90 caps 01/30/22 04/07/22 mcg (5,000 unit) capsule fluticasone fur. 200 mcg-umeclid 1 inh inhalation DAILY #60 ea 01/30/22 04/07/22 62.5 mcg-vilant 25 mcg inhalat.powder (Trelegy Ellipta) ibuprofen 800 mg tablet (IBU) 800 mg PO Q8H PRN pain #90 tabs 01/30/22 04/07/22 rosuvastatin 5 mg tablet 5 mg PO DAILY #90 tabs 01/30/22 04/07/22 diltiazem HCl 120 mg capsule,24 120 mg PO DAILY #90 caps 02/04/22 04/07/22 hr,extended release prednisone 20 mg tablet 40 mg PO DAILY PRN 04/07/22 04/07/22 amoxicillin 875 mg-potassium 1 tab PO BID #10 tabs 04/08/22 clavulanate 125 mg tablet morphine concentrate 100 mg/5 mL 5 mg (0.25 mL) buccal DAILY PRN 04/08/22 (20 mg/mL) oral solution PRN #30 mL prednisone 20 mg tablet 40 mg PO DAILY #6 tabs 04/08/22 Previous Rx's Medication Instructions Recorded calcium carbonate 600 mg calcium 600 mg PO BID #180 tabs 09/13/18 (1,500 mg) tablet albuterol sulfate 2.5 mg/0.5 mL 2.5 mg (0.5 mL) inhalation Q4H PRN 01/30/22 solution for nebulization shortness of breath or wheezing #100 ea albuterol sulfate 90 mcg/actuation 2 puff inhalation Q4H PRN 01/30/22 aerosol inhaler (Proventil HFA) bronchospasm #18 grams alendronate 70 mg tablet 70 mg PO QWEEK #13 tabs 01/30/22 cholecalciferol (vitamin D3) 125 5,000 unit PO DAILY #90 caps 01/30/22 mcg (5,000 unit) capsule fluticasone fur. 200 mcg-umeclid 1 inh inhalation DAILY #60 ea 01/30/22 62.5 mcg-vilant 25 mcg inhalat.powder (Trelegy Ellipta) ibuprofen 800 mg tablet (IBU) 800 mg PO Q8H PRN pain #90 tabs 01/30/22 rosuvastatin 5 mg tablet 5 mg PO DAILY #90 tabs 01/30/22 diltiazem HCl 120 mg capsule,24 120 mg PO DAILY #90 caps 02/04/22 hr,extended release amoxicillin 875 mg-potassium 1 tab PO BID #10 tabs 04/08/22 clavulanate 125 mg tablet morphine concentrate 100 mg/5 mL 5 mg (0.25 mL) buccal DAILY PRN 04/08/22 (20 mg/mL) oral solution PRN #30 mL prednisone 20 mg tablet 40 mg PO DAILY #6 tabs 04/08/22 Allergies Allergy/AdvReac Type Severity Reaction Status Date / Time oxycodone HCl [From Percocet] AdvReac Unverified 04/07/22 10:53 General Stated Complaint: SOB HALINA: 2 Review of Systems All systems reviewed & are unremarkable except as noted in HPI and below Constitutional Constitutional: Denies chills, Denies excessive sweating, Denies fatigue, Denies fever(s), Denies weakness and Denies weight loss Eyes Eyes: Reports system reviewed and no additional complaints, except as documented and Denies blurry vision ENT Ears, Nose, Mouth, and Throat: Denies vertigo, Denies dizziness, Denies otalgia, Denies nasal congestion, Denies sore throat and Denies throat swelling Cardiovascular Cardiovascular: Denies chest pain, Denies syncope, Denies rapid heart rate and Reports dyspnea Respiratory Respiratory: Denies chest congestion, Denies cough, Denies pain on inspiration and Reports dyspnea Gastrointestinal Gastrointestinal: Denies abdominal pain, Denies diarrhea and Denies vomiting Genitourinary Genitourinary: Denies hematuria, Denies dysuria and Denies flank pain Musculoskeletal Musculoskeletal: Denies back pain and Denies joint swelling Integumentary/Breasts Skin/Breast: Denies lesions and Denies rash Neurologic Neurologic: Denies behavioral changes, Denies confusion, Denies vertigo, Denies dizziness, Denies syncope, Denies localized weakness and Denies weakness Psychiatric Psychiatric: Denies behavioral changes, Denies confusion and Denies depression Endocrine Endocrine: Denies excessive sweating and Denies fatigue Hematologic/Lymphatic Hematologic/Lymphatic: Denies easy bruising and Denies lymphadenopathy Allergic/Immunologic Allergic/Immunologic: Denies throat swelling PFSH All Active Problems (Updated 04/09/22 @ 00:08 by ANDRES DOSS) Pneumonia (Acute) Sinus tachycardia (Chronic) Osteoporosis (Chronic) BMI 25.0-25.9,adult (Acute) Hyperlipemia (Acute 09/21/17) BALJIT (obstructive sleep apnea) (Chronic 04/09/16) -BIPAP 10/05 WITH 3 LPM SUPPLEMENTAL OXYGEN Malignant neoplasm of skin (Acute) squamous cell Vitamin D deficiency (Chronic) Bipolar disorder (Chronic) not currently taking meds and symptoms stable COPD (chronic obstructive pulmonary disease) (Chronic) Medical History ADD (attention deficit disorder) (10/29/16) Bereavement due to life event (06/24/98) CHF (congestive heart failure) during hospitalization 2021 Depressive disorder (12/12/12) Diverticulitis Diverticulosis of colon (10/05/17) Emphysema (subcutaneous) resulting from a procedure, initial encounter Jul 2021 Mood disorder (03/15/18) Pneumothorax, right Jul/ Aug 2021 Post covid-19 condition, unspecified Situational anxiety (03/07/18) Smoker (12/12/12) former-stopped 2019 prior smoking since age 11 >40 pack year hx Surgical History History of herniorrhaphy History of surgical procedure (~08/26/21) thoracoscopy resect bullae- bronchoscopy, robotic assisted right thoracoscopic upper lobe wedge resections x3, atricure cryotherapy intercostal nerve block 5-9 ics Repair of inguinal hernia (~2007) 2008 right 2009 left Family History Mother , 78 Asthma COPD (chronic obstructive pulmonary disease) Daughter , 33 Brain tumor Depression Father , 78 COPD (chronic obstructive pulmonary disease) Son No problems noted. Son , 8 No problems noted. Social History Smoking/Tobacco Use Status: Former Tobacco Use tobacco type: cigarettes Quit Date: 07/26/19 Second Hand Exposure: Yes Smoking risk assessment performed?: Yes Alcohol Intake: former Drug use: Never Substance use type: does not use Caregiver/Support person: No Household members: spouse Housing: house Pets and animals: Yes Pets and animals: cat(s) and dog(s) Sexually active: Yes What is your relationship status?: How often do you talk on the phone with friends or family?: once per week How often do you get together with friends or relatives?: once per week How often do you attend mormonism or latter-day services?: decline to answer Do you belong to any clubs or organized social groups?: no Panel score (0-1 are the most socially isolated patients): 1 What type of physical activity do you participate in: none Duration: 45-60 minutes/day Seatbelt use: always Helmet use: Yes Helmet use: always Drive intox or ride w/intox electric lift truck driver: No Do you feel safe at home: Yes Do you feel safe in your relationship?: Yes Additional Social history: , with adult children. Ongoing tobacco use, 1/2 to 1 pack daily with prior 2 ppd history, approximate 55 pack year history. Reports prior ETOH excess, none in 20 years. Denies illicit drugs. Exam Const General: cooperative Orientation: alert, awake and oriented x3 HENMT Head: normal to inspection Ears: hearing grossly normal bilaterally and external ears normal General nose exam: external nose normal Face and sinus: normal facial exam Eyes General: appearance normal, both eyes and all related structures Eyelids: eyelids normal Pupils: PERRL EOM: EOM intact bilaterally Neck Neck: normal visual inspection Lymphatic: no lymphadenopathy noted Chest Chest: normal inspection of the chest Resp Effort & Inspection: normal respiratory effort and not able to speak in complete sentences Auscultation: diminished lung sounds bilaterally throughout and wheezes expiratory wheezes and inspiratory wheezes Cardio Rate: regular rate Rhythm: regular rhythm GI Inspection: normal to inspection Palpation: soft, not firm, no guarding, no hepatosplenomegaly, no masses and nontender Auscultation: normal bowel sounds Skin General skin exam: no rashes or lesions noted Neuro General: patient alert and patient awake Cognition: normal cognition Speech: speech normal Gait: normal gait Motor: muscle tone normal throughout Sensory Exam: no sensory deficits noted Extrem General: normal to inspection, full ROM and capillary refill normal Psych Appearance: grossly normal Mental Status: mental status grossly normal Speech and Movement: speech and movement normal Affect: normal affect Thought Process: normal Critical Care Time Critical Care Time Critical Care Time: Yes Total Critical Care Time: 30 Attestation: I spent 30 minutes of critical care time with this patient. This does not include time spent on separately reported billable procedures.
[2022-04-07 10:51] LABS: Abs Immature Grans 0.06 10^3/uL (0.0-0.06); Absolute Basophil Count 0.11 10^3/uL (0.0-0.2); Absolute Eosinophil Count 0.08 10^3/uL (0.0-0.7); Absolute Lymphocyte Count 4.61 10^3/uL (1.2-3.4); Absolute Monocyte Count 1.35 10^3/uL (0.1-0.8); Absolute Neutrophil Count 7.81 10^3/uL (1.2-6.7); Basophils % 0.8; Eosinophils % 0.6; HCT 43.6 % (40.0-50.0); HGB 14.1 g/dL (13.5-17.5); Immature Grans % 0.4; Lymphocytes % 32.9; MCH 29.1 pg (27.0-33.0); MCHC 32.3 % (32.0-36.0); MCV 90 fL (80-95); Monocytes % 9.6; Neutrophils % 55.7; Platelet Count 208 10^3/uL (130-400); RBC 4.84 10^6/uL (4.36-5.78); RDW 12.6 % (11.8-14.1); RDW-SD 41.6 fL; WBC 14.02 10^3/uL (4.4-10.8)
[2022-04-07] MEDS: MORPHine 4 MG/ML SYR IVP (10:58)
[2022-04-07] MEDS: Ondansetron 4 MG/2 ML VIAL IVP (10:58)
[2022-04-07] MEDS: Albuterol 2.5 MG/3 ML INH SOLN VIAL (10:59)
[2022-04-07 11:06] LABS: BE 3 mmol/L (-2-3); HCO3 30 mmol/L (22-26); pH 7.25 (7.35-7.45); sO2 64 % (95-98); tCO2 28 mmol/L (23-27)
[2022-04-07 11:07] LABS: Site Right Radial; pCO2 68 mmHg (35-45); pO2 37 mmHg (80-105)
[2022-04-07 11:08] LABS: FIO2 40 %
[2022-04-07 11:17] LABS: ALT 32 U/L (16-63); AST 15 U/L (15-37); Albumin 4.1 g/dL (3.4-5.0); Alkaline Phosphatase 84 U/L (46-116); Anion Gap 4.2 mmol/L (3-11); BUN 14 mg/dL (7-18); Bilirubin, Total 0.3 mg/dL (0.2-1.0); CO2 35.8 mmol/L (21.0-32.0); Calcium 8.9 mg/dL (8.5-10.1); Chloride 103 mmol/L (98-107); Estimated GFR 89.44 (mL/min/1.73m2); Glucose 115 mg/dL (74-106); Magnesium 1.8 mg/dL (1.8-2.4); Potassium 3.7 mmol/L (3.5-5.1); Sodium 143 mmol/L (136-145); Total Protein 7.8 g/dL (6.4-8.2); Troponin I < 50 ng/L (<or=60)
[2022-04-07] MEDS: Normal Saline 250 ML 500 ML IV (11:20)
[2022-04-07 11:23] LABS: NT-proBNP 41 pg/mL (<300)
[2022-04-07 11:29] LABS: COVID-19 PCR Negative (Negative); Influenza A PCR Negative (Negative); Influenza B PCR Negative (Negative); RSV PCR Negative (Negative)
[2022-04-07 12:30] LABS: BE 3 mmol/L (-2-3); HCO3 29 mmol/L (22-26); pCO2 56 mmHg (35-45); pH 7.32 (7.35-7.45); pO2 92 mmHg (80-105); sO2 97 % (95-98); tCO2 26 mmol/L (23-27)
[2022-04-07 12:32] LABS: FIO2 40 %; Site Left Radial
[2022-04-07] MEDS: dilTIAZem CD 120 MG CAPCR PO (12:53)
[2022-04-07] MEDS: AZITHROMYCIN 500 MG in Normal Saline 250 ML 250 MG IVPB (13:28)
[2022-04-07] MEDS: cefTRIAXone 2 GM/50 ML BAG IVPB (13:29)
[2022-04-07 13:37] LABS: D-Dimer 227 ng/mlFEU (<500)
[2022-04-07 13:57] LABS: Procalcitonin 0.1 ng/mL
[2022-04-07 14:21] LABS: Troponin I < 50 ng/L (<or=60)
--- NOTE | 2022-04-07 14:37 | NUR.NOTE ---
Patient does not have covid vaccines but is interesting in getting them. Nursing Note:
--- NOTE | 2022-04-07 14:38 | W.PM.HP.N ---
Date of service: 04/07/22 Time of Service: 14:38 Assessment and Plan Assessment and plan (1) Pneumonia: Status: Acute Assessment and plan: Nodular infiltrates and elevated WBC count. No fever. Rocephin initiated in the ED. (2) BALJIT (obstructive sleep apnea): Status: Chronic Assessment and plan: Wheres CPAP at home. Currently on BiPAP and tolerating well. (3) COPD (chronic obstructive pulmonary disease): Status: Chronic Assessment and plan: With exacerbation. Nebs, steroids, Trelegy Ellipta. Supplemental O2. History of Present Illness History of Present Illness Chief Complaint: Shortness of air Narrative: This is a 52 yo male with a PMH of COPD, CHF, ADD, previous pneumothorax, bipolar disorder.? He presented to the ED via EMS after waking up on the AM of admission with shortness of air.? This made him feel anxious and felt he had a panic attack.? He endorses feeling claustrophobic when he gets shortness of breath.? EMS noted his RA O2 saturation was 90% initially.? He was wheezing.? CPAP initiated, DuoNeb and IV solu-medrol administered. CXR showed no acute processes. CT chest showed no evidence of pulmonary emboli. ? Severe underlying emphysematous changes.? There are a few scattered nodular densities which could represent superimposed? pneumonia. ? Clinical correlation is recommended. His presenting WBC count was 14. He was given Ceftriaxone in the ED. He was also administered morphine 4mg IV to help with his air hunger and sense of panic. Review of Systems All systems reviewed & are unremarkable except as noted in HPI and below PFSH All Active Problems (Updated 04/09/22 @ 00:08 by ANDRES DOSS) Pneumonia (Acute) Sinus tachycardia (Chronic) Osteoporosis (Chronic) BMI 25.0-25.9,adult (Acute) Hyperlipemia (Acute 09/21/17) BALJIT (obstructive sleep apnea) (Chronic 04/09/16) -BIPAP 10/05 WITH 3 LPM SUPPLEMENTAL OXYGEN Malignant neoplasm of skin (Acute) squamous cell Vitamin D deficiency (Chronic) Bipolar disorder (Chronic) not currently taking meds and symptoms stable COPD (chronic obstructive pulmonary disease) (Chronic) Medical History ADD (attention deficit disorder) (10/29/16) Bereavement due to life event (06/24/98) CHF (congestive heart failure) during hospitalization 2021 Depressive disorder (12/12/12) Diverticulitis Diverticulosis of colon (10/05/17) Emphysema (subcutaneous) resulting from a procedure, initial encounter Jul 2021 Mood disorder (03/15/18) Pneumothorax, right Jul/ Aug 2021 Post covid-19 condition, unspecified Situational anxiety (03/07/18) Smoker (12/12/12) former-stopped 2018 prior smoking since age 11 >40 pack year hx Surgical History History of herniorrhaphy History of surgical procedure (~08/26/21) thoracoscopy resect bullae- bronchoscopy, robotic assisted right thoracoscopic upper lobe wedge resections x3, atricure cryotherapy intercostal nerve block 5-9 ics Repair of inguinal hernia (~2007) 2008 right 2009 left Family History Mother , 78 Asthma COPD (chronic obstructive pulmonary disease) Daughter , 33 Brain tumor Depression Father , 78 COPD (chronic obstructive pulmonary disease) Son No problems noted. Son , 8 No problems noted. Social History Smoking/Tobacco Use Status: Former Tobacco Use tobacco type: cigarettes Quit Date: 07/26/19 Second Hand Exposure: Yes Smoking risk assessment performed?: Yes Alcohol Intake: former Drug use: Never Substance use type: does not use Caregiver/Support person: No Household members: spouse Housing: house Pets and animals: Yes Pets and animals: cat(s) and dog(s) Sexually active: Yes What is your relationship status?: How often do you talk on the phone with friends or family?: once per week How often do you get together with friends or relatives?: once per week How often do you attend pentecostal or latter day services?: decline to answer Do you belong to any clubs or organized social groups?: no Panel score (0-1 are the most socially isolated patients): 1 What type of physical activity do you participate in: none Duration: 45-60 minutes/day Seatbelt use: always Helmet use: Yes Helmet use: always Drive intox or ride w/intox garbage collector driver: No Do you feel safe at home: Yes Do you feel safe in your relationship?: Yes Additional Social history: , with adult children. Ongoing tobacco use, 1/2 to 1 pack daily with prior 2 ppd history, approximate 55 pack year history. Reports prior ETOH excess, none in 20 years. Denies illicit drugs. Meds Allergies and Home Medications Allergies Allergy/AdvReac Type Severity Reaction Status Date / Time oxycodone HCl [From Percocet] AdvReac Unverified 04/07/22 10:53 Home Medications Medication Instructions Recorded Confirmed Type calcium carbonate 600 mg calcium 600 mg PO BID #180 tabs 09/13/18 04/07/22 Rx (1,500 mg) tablet albuterol sulfate 2.5 mg/0.5 mL 2.5 mg (0.5 mL) inhalation Q4H PRN 01/30/22 04/07/22 Rx solution for nebulization shortness of breath or wheezing #100 ea albuterol sulfate 90 mcg/actuation 2 puff inhalation Q4H PRN 01/30/22 04/07/22 Rx aerosol inhaler (Proventil HFA) bronchospasm #18 grams alendronate 70 mg tablet 70 mg PO QWEEK #13 tabs 01/30/22 04/07/22 Rx cholecalciferol (vitamin D3) 125 5,000 unit PO DAILY #90 caps 01/30/22 04/07/22 Rx mcg (5,000 unit) capsule fluticasone fur. 200 mcg-umeclid 1 inh inhalation DAILY #60 ea 01/30/22 04/07/22 Rx 62.5 mcg-vilant 25 mcg inhalat.powder (Trelegy Ellipta) ibuprofen 800 mg tablet (IBU) 800 mg PO Q8H PRN pain #90 tabs 01/30/22 04/07/22 Rx rosuvastatin 5 mg tablet 5 mg PO DAILY #90 tabs 01/30/22 04/07/22 Rx diltiazem HCl 120 mg capsule,24 120 mg PO DAILY #90 caps 02/04/22 04/07/22 Rx hr,extended release prednisone 20 mg tablet 40 mg PO DAILY PRN 04/07/22 04/07/22 History amoxicillin 875 mg-potassium 1 tab PO BID #10 tabs 04/08/22 Rx clavulanate 125 mg tablet morphine concentrate 100 mg/5 mL 5 mg (0.25 mL) buccal DAILY PRN 04/08/22 Rx (20 mg/mL) oral solution PRN #30 mL prednisone 20 mg tablet 40 mg PO DAILY #6 tabs 04/08/22 Rx Exam Narrative Exam Narrative: Lying supine in bed. CPAP in use. Pleasant. Const General: cooperative and no acute distress Nutritional Appearance: overweight Orientation: oriented x3 Eyes General: appearance normal, both eyes and all related structures Sclera: sclerae normal Resp Effort & Inspection: normal respiratory effort and not able to speak in complete sentences Auscultation: diminished lung sounds and wheezes Cardio Rate: tachycardic Heart Sounds: S1 normal, S2 normal and no murmurs GI Inspection: normal to inspection and non-distended Palpation: soft and nontender Skin General skin exam: no rashes or lesions noted Neuro General: moves all extremities Cranial Nerves: facial strength normal Speech: speech normal Extrem General: no pedal edema and no calf tenderness Psych Appearance: grossly normal Affect: normal affect Results Labs Result diagrams: 04/08/22 05:34 04/08/22 05:34 Labs: Laboratory Results - last 24 hr 04/07/22 04/07/22 04/07/22 10:43 10:43 10:43 WBC 14.02 H RBC 4.84 Hgb 14.1 Hct 43.6 MCV 90 MCH 29.1 MCHC 32.3 RDW 12.6 Plt Count 208 MPV 11.0 Immature Gran % 0.4 Neutrophils % 55.7 Lymphocytes % 32.9 Monocytes % 9.6 Eosinophils % 0.6 Basophils % 0.8 Nucleated RBC % 0.0 Absolute Neutrophils 7.81 H Absolute Lymphocytes 4.61 H Absolute Monocytes 1.35 H Absolute Eosinophils 0.08 Absolute Basophils 0.11 D-Dimer ABG Sample Site ABG pH ABG pCO2 ABG pO2 ABG HCO3 ABG Total CO2 ABG O2 Saturation ABG Base Excess VBG Lactate Oxygen Liter Flow FiO2 Sodium 143 Potassium 3.7 Chloride 103 Carbon Dioxide 35.8 H Anion Gap 4.2 BUN 14 Creatinine 1.0 Est GFR (CKD-EPI 2020) 89.44 Glucose 115 H Calcium 8.9 Magnesium 1.8 Total Bilirubin 0.3 AST 15 ALT 32 Alkaline Phosphatase 84 Troponin I < 50 NT-Pro-B Natriuret Pep 41 Total Protein 7.8 Albumin 4.1 Procalcitonin COVID-19 Source SARS-CoV-2 (PCR) Influenza Type A (PCR) Influenza Type B (PCR) RSV (PCR) 04/07/22 04/07/22 04/07/22 10:43 10:43 11:03 WBC RBC Hgb Hct MCV MCH MCHC RDW Plt Count MPV Immature Gran % Neutrophils % Lymphocytes % Monocytes % Eosinophils % Basophils % Nucleated RBC % Absolute Neutrophils Absolute Lymphocytes Absolute Monocytes Absolute Eosinophils Absolute Basophils D-Dimer 227 ABG Sample Site Right Radial ABG pH 7.25 L ABG pCO2 68 H* ABG pO2 37 L* ABG HCO3 30 H ABG Total CO2 28 H ABG O2 Saturation 64 L ABG Base Excess 3 VBG Lactate Oxygen Liter Flow BIPAP 12/5 FiO2 40 Sodium Potassium Chloride Carbon Dioxide Anion Gap BUN Creatinine Est GFR (CKD-EPI 2020) Glucose Calcium Magnesium Total Bilirubin AST ALT Alkaline Phosphatase Troponin I NT-Pro-B Natriuret Pep Total Protein Albumin Procalcitonin COVID-19 Source Not Applicable SARS-CoV-2 (PCR) Negative Influenza Type A (PCR) Negative Influenza Type B (PCR) Negative RSV (PCR) Negative 04/07/22 04/07/22 04/07/22 11:09 12:30 13:13 WBC RBC Hgb Hct MCV MCH MCHC RDW Plt Count MPV Immature Gran % Neutrophils % Lymphocytes % Monocytes % Eosinophils % Basophils % Nucleated RBC % Absolute Neutrophils Absolute Lymphocytes Absolute Monocytes Absolute Eosinophils Absolute Basophils D-Dimer ABG Sample Site Cancelled Left Radial ABG pH Cancelled 7.32 L ABG pCO2 Cancelled 56 H ABG pO2 Cancelled 92 ABG HCO3 Cancelled 29 H ABG Total CO2 Cancelled 26 ABG O2 Saturation Cancelled 97 ABG Base Excess Cancelled 3 VBG Lactate 1.0 Oxygen Liter Flow Cancelled BIPAP 12/5 FiO2 Cancelled 40 Sodium Potassium Chloride Carbon Dioxide Anion Gap BUN Creatinine Est GFR (CKD-EPI 2020) Glucose Calcium Magnesium Total Bilirubin AST ALT Alkaline Phosphatase Troponin I NT-Pro-B Natriuret Pep Total Protein Albumin Procalcitonin 0.1 COVID-19 Source SARS-CoV-2 (PCR) Influenza Type A (PCR) Influenza Type B (PCR) RSV (PCR) 04/07/22 13:50 WBC RBC Hgb Hct MCV MCH MCHC RDW Plt Count MPV Immature Gran % Neutrophils % Lymphocytes % Monocytes % Eosinophils % Basophils % Nucleated RBC % Absolute Neutrophils Absolute Lymphocytes Absolute Monocytes Absolute Eosinophils Absolute Basophils D-Dimer ABG Sample Site ABG pH ABG pCO2 ABG pO2 ABG HCO3 ABG Total CO2 ABG O2 Saturation ABG Base Excess VBG Lactate Oxygen Liter Flow FiO2 Sodium Potassium Chloride Carbon Dioxide Anion Gap BUN Creatinine Est GFR (CKD-EPI 2020) Glucose Calcium Magnesium Total Bilirubin AST ALT Alkaline Phosphatase Troponin I < 50 NT-Pro-B Natriuret Pep Total Protein Albumin Procalcitonin COVID-19 Source SARS-CoV-2 (PCR) Influenza Type A (PCR) Influenza Type B (PCR) RSV (PCR) Last Vital Signs Temp 36.4 C L 04/07/22 14:28 Pulse 124 H 04/07/22 14:28 Resp 17 04/07/22 14:31 BP 110/69 04/07/22 14:28 Pulse Ox 97 04/07/22 14:31
[2022-04-07] MEDS: Enoxaparin 40 MG/0.4 ML SYR SC (14:40)
[2022-04-07] MEDS: Ipratropium 0.5 MG/2.5 ML UPD VIAL 0.25 MG UPD ×2 (16:36→20:23)
[2022-04-07] MEDS: Acetaminophen 325 MG TAB PO (17:39)
[2022-04-08] VITALS (29 sets, daily range): BP systolic 97–137; BP diastolic 57–94; PULSE 79–117; RESP 7–27; TEMP 36.7–37.4; O2SAT 90–96
[2022-04-08 06:16] LABS: Abs Immature Grans 0.04 10^3/uL (0.0-0.06); Absolute Basophil Count 0.01 10^3/uL (0.0-0.2); Absolute Lymphocyte Count 1.56 10^3/uL (1.2-3.4); Absolute Monocyte Count 0.49 10^3/uL (0.1-0.8); Absolute Neutrophil Count 7.64 10^3/uL (1.2-6.7); Basophils % 0.1; Immature Grans % 0.4; MCHC 33.3 % (32.0-36.0); MCV 87 fL (80-95); MPV 11.7 fL (8.0-11.0); Neutrophils % 78.5; Platelet Count 174 10^3/uL (130-400); RBC 4.49 10^6/uL (4.36-5.78); RDW 12.6 % (11.8-14.1); RDW-SD 40.1 fL; WBC 9.74 10^3/uL (4.4-10.8)
[2022-04-08 06:45] LABS: Anion Gap 8.9 mmol/L (3-11); BUN 14 mg/dL (7-18); CO2 29.1 mmol/L (21.0-32.0); CREATININE 0.9 mg/dL (0.70-1.30); Calcium 9.6 mg/dL (8.5-10.1); Chloride 103 mmol/L (98-107); Estimated GFR 101.49 (mL/min/1.73m2); Glucose 157 mg/dL (74-106); Potassium 4.2 mmol/L (3.5-5.1); Sodium 141 mmol/L (136-145)
[2022-04-08] MEDS: Ipratropium 0.5 MG/2.5 ML UPD VIAL 0.25 MG UPD ×2 (07:40→11:56)
[2022-04-08] MEDS: Levalbuterol 0.63 MG/3 ML UPD VIAL UPD (07:44)
[2022-04-08] MEDS: Tiotropium Bromide-Respimat 10 PUFF INH 2 PUFF IH (07:47)
[2022-04-08] MEDS: Budesonide/Formoterol 160/4.5 6 GM 60 PUFF INH IH (08:10)
[2022-04-08] MEDS: Rosuvastatin 5 MG TAB PO (08:22)
[2022-04-08] MEDS: dilTIAZem CD 120 MG CAPCR PO (08:22)
--- NOTE | 2022-04-08 08:27 | NUR.NOTE ---
Offered patient things to wash up and he politely declined as he is anticipating discharge. Nursing Note:
--- NOTE | 2022-04-08 09:17 | INITIAL_ITS ---
- If Service Date Differs Date of service: 04/08/22 Time of Service: 09:17 Care Management Initial Assess REASON FOR HOSPITALIZATION:: Pneumonia, COPD exacerbation PAST MEDICAL HISTORY/PAST SURGICAL HISTORY:: All Active Problems. Acute exacerbation of chronic obstructive pulmonary disease (Acute). Pneumonia (Acute). Sinus tachycardia (Chronic). Osteoporosis (Chronic). BMI 25.0- 25.9,adult (Acute). Hyperlipemia (Acute 09/21/17). BALJIT (obstructive sleep apnea) (Chronic 04/09/16). -BIPAP 10/05 WITH 3 LPM SUPPLEMENTAL OXYGEN. Malignant neoplasm of skin (Acute). squamous cell. Vitamin D deficiency (Chronic). Bipolar disorder (Chronic). not currently taking meds and symptoms stable. COPD (chronic obstructive pulmonary disease) (Chronic). Medical History. ADD (attention deficit disorder) (10/29/16). Bereavement due to life event (06/24/98). CHF (congestive heart failure). during hospitalization 2021. Depressive disorder (12/12/12). Diverticulitis. Diverticulosis of colon (10/05/17). Emphysema (subcutaneous) resulting from a procedure, initial encounter. Jul 2021. Mood disorder (03/15/18). Pneumothorax, right. Jul/ Aug 2021. Post covid-19 condition, unspecified. Situational anxiety (03/07/18). Smoker (12/12/12). former-stopped 2018. prior smoking since age 11 >40 pack year hx. Surgical History. History of herniorrhaphy. History of surgical procedure (~08/26/21). thoracoscopy resect bullae- bronchoscopy, robotic assisted right thoracoscopic upper lobe wedge resections x3, atricure cryotherapy intercostal nerve block 5-9 ics. Repair of inguinal hernia (~2007). 2007 right. 2008 left PREVIOUS FUNCTIONAL STATUS/SOCIAL/FAMILY SUPPORTS:: Jakob lives in [place] with his , Dayan. He has one child, and his has three, and they have 10 grandchildren. He used to work for the [employer] in [employer], but he had to stop working shortly after his COPD diagnosis. 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 He is independent with ambulation, although his oxygen requirement creates difficulty for some of his ADL's, but he still performs them currently. CURRENT FUNCTIONAL STATUS:: Jakob was lying in bed visiting with his , Dayan, when CM met with him. They were both pleasant and engaged in conversation. They explained that they are [place] to this area, but moved to [place] for three years to help care for Dayan's mother at the end of her life. Once she passed, they relocated to this area again. Jakob expressed frustration in the lack of services and support for his COPD and oxygen needs in the area, stating that in [place] there was ample support. He reported that he has been connected with Pulmonology locally, although he hasn't had the appointment yet. Jakob asked about support in the community, and CM discussed home health supports, as he mentioned having difficulty with ADL's. MD ordered nursing, OT and [employer], to assist with shelter planning. CM also sent a referral to Palliative care to review his goals of care, as he stated that he is very clear that he does not want to live on machines. CM will continue to follow. ADVANCE DIRECTIVES:: [facility] on file. Has patient been provided with info about the portal/API?: Yes Did the patient sign up for the portal?: Yes (active) CODE STATUS:: DNR/DNI INSURANCE COVERAGE / FINANCIAL ISSUES:: MCR/ADRIANO CURRENT HOME/COMMUNITY SERVICES/EQUIPMENT:: Home O2 through [facility] [place] PRIMARY CARE PHYSICIAN:: Lexie Valencia POTENTIAL DISCHARGE NEEDS:: Evaluations for further needs, follow up appointments PATIENT/FAMILY EDUCATION NEEDS:: Review discharge instructions and limitations, discussion of self care needs including ask me three. ANTICIPATED BARRIERS TO DISCHARGE:: None identified. TRANSPORTATION:: Via private vehicle by his . PLAN:: Anticipate Jakob will return home once medically cleared. He will have new HH RN, OT, [employer]. CM sent a referral for out patient palliative care as well, to discuss goals of care. His will drive him home via private vehicle. He will follow up with his PCP and discharge plan of care. CM will continue to follow.
[2022-04-08] MEDS: cefTRIAXone 1 GM/50 ML BAG IVPB (09:41)
[2022-04-08] MEDS: AZITHROMYCIN 500 MG in Normal Saline 250 ML 250 MG IVPB (10:13)
--- NOTE | 2022-04-08 13:13 | W.PM.DS.N ---
Date of service: 04/08/22 Time of Service: 13:13 Discharge Plan Disposition Patient Disposition: HOME Condition: Improving Discharge Details Reason For Visit: Pneumonia, COPD Exacerbation Admit Date/Time: 04/07/22 13:15 Admit Provider: Ki Paul Attending Provider: Ki Paul Primary Care Provider: [facility] Course Hospital Course: This is a 52 yo male with a PMH of COPD, CHF, ADD, previous pneumothorax, bipolar disorder.? He presented to the ED via EMS after waking up on the AM of admission with shortness of air.? This made him feel anxious and felt he had a panic attack.? He endorses feeling claustrophobic when he gets shortness of breath.? EMS noted his RA O2 saturation was 90% initially.? He was wheezing.? CPAP initiated, DuoNeb and IV solu-medrol administered. CXR showed no acute processes. CT chest showed no evidence of pulmonary emboli. ? Severe underlying emphysematous changes.? There are a few scattered nodular densities which could represent superimposed? pneumonia. ? Clinical correlation is recommended. His presenting WBC count was 14. He was initially administered ceftriaxone; 2 doses given. The following day the WBC count normalized to 9.74. He readily returned to his baseline regarding his supplemental O2 needs. His tachycardia improved into the 80-90's range with low 100's noted while preparing for discharge. He will d/c on Augmentin 875mg BID for 10 doses. He will complete a burst of prednisone. He has a history of feeling panicky when he has a COPD exacerbation; IV morphine helped him ease his breathing and feel less claustrophobic and panicked. He was given morphine oral concentrate that he can take (5mg) as needed for such instances. PCP follow up in 1-2 weeks. Home Meds and New Rx's Prescriptions: New amoxicillin-pot clavulanate 875-125 mg tablet 1 tab PO BID Qty: 10 0RF prednisone 20 mg tablet 40 mg PO DAILY Qty: 6 0RF morphine concentrate 100 mg/5 mL (20 mg/mL) solution 5 mg buccal DAILY PRN PRNQty: 30 0RF Continued albuterol sulfate [Proventil HFA] 90 mcg/actuation HFA aerosol inhaler 2 puff IH Q4H PRN (Reason: bronchospasm) Qty: 18 11RF albuterol sulfate 2.5 mg/0.5 mL solution for nebulization 2.5 mg IH Q4H PRN (Reason: shortness of breath or wheezing) Qty: 100 5RF alendronate 70 mg tablet 70 mg PO QWEEK Qty: 13 4RF cholecalciferol (vitamin D3) 125 mcg (5,000 unit) capsule 5,000 unit PO DAILY Qty: 90 3RF Trelegy Ellipta 200-62.5-25 mcg blister with device 1 inh inhalation DAILY Qty: 60 6RF rosuvastatin 5 mg tablet 5 mg PO DAILY Qty: 90 4RF ibuprofen [IBU] 800 mg tablet 800 mg PO Q8H PRN (Reason: pain) Qty: 90 2RF calcium carbonate 600 mg calcium (1,500 mg) tablet 600 mg PO BID Qty: 180 3RF diltiazem HCl 120 mg capsule,extended release 24 hr 120 mg PO DAILY Qty: 90 4RF prednisone 20 mg tablet 40 mg PO DAILY PRN Discharge Instructions Activity:: Activity as Tolerated Equipment/Supplies:: No Equipment Needed Diet:: Resume home diet Discharge Orders Discharge Orders: Discharge Order (Routine); Ordered 04/08/22 Ordered By: Ki Paul Discharge Data Discharge Date/Time-TO BE ENTERED AT DEPARTURE: 04/08/22 14:00 DS: Summary Time Spent with Patient providing and/or coordinating discharge services: Greater than 30 minutes Status at Discharge Functional status at discharge: independent ambulation Overall status at discharge: patient is progressing back to baseline Mental Status: mental status grossly normal Speech and Movement: speech and movement normal Mood: congruent mood Affect: normal affect Exam Narrative Exam Narrative: Sitting in bed eating breakfast Const General: cooperative and no acute distress Nutritional Appearance: overweight Orientation: alert and oriented x3 Eyes General: appearance normal, both eyes and all related structures Sclera: sclerae normal Neck Neck: normal visual inspection and no JVD Resp Effort & Inspection: normal respiratory effort and able to speak in complete sentences (Mild SOA after moderate amount of verbage spoken.) Auscultation: diminished lung sounds and wheezes (soft) Cardio Rate: regular rate Rhythm: regular rhythm Heart Sounds: S1 normal and S2 normal GI Palpation: soft and nontender Auscultation: normal bowel sounds Skin General skin exam: no rashes or lesions noted Extrem General: no pedal edema and no calf tenderness Psych Appearance: grossly normal Mental Status: mental status grossly normal Speech and Movement: speech and movement normal Mood: congruent mood Affect: normal affect DS: Data Vitals/I&O Vitals and I&O: Vital Signs Temperature 37.4 C 04/08/22 07:30 Temperature Source Temporal Artery Scan 04/08/22 07:30 Pulse 105 H 04/08/22 11:56 Pulse 110 H 04/08/22 09:00 Respiratory Rate 14 04/08/22 11:56 Respiratory Effort Accessory Muscle Use 04/08/22 07:30 Respiratory Depth Normal 04/08/22 07:30 Respiratory Pattern Normal 04/08/22 07:30 Blood Pressure 127/94 H 04/08/22 08:00 Blood Pressure Mean 103 04/08/22 08:00 Blood Pressure Position Supine 04/08/22 07:30 Pulse Oximetry 92 04/08/22 11:56 Oxygen Delivery Method Nasal Cannula 04/08/22 11:56 Oxygen Flow Rate 3 04/08/22 11:56 Fraction of Inspired Oxygen (FIO2) 30 04/08/22 08:01 Pain Level 0 04/08/22 07:30 Comment 04/07/22 10:35 Intake & Output 04/07/22 04/08/22 04/08/22 23:59 11:59 23:59 Intake Total 1640 / 1640 1140 / 1140 Output Total 1699 Balance -60 / -360 -860 / -860 Weight 81.2 kg 82.4 kg Intake: IV 800 / 800 300 / 300 Oral 840 / 840 840 / 840 Output: Urine 1699 Other: Urine Color Pale Yellow Yellow Urine Appearance Clear Clear Urine Odor None None Comment uses urinal and voids large amounts of clear, very light colored yellow urine voided another 450cc's of yellow urine in urinal Voiding Methods Urinal Urinal Data Completed and Pending Labs on day of discharge: Labs from last 24 hours 04/08/22 04/08/22 04/07/22 05:34 05:34 13:50 WBC 9.74 RBC 4.49 Hgb 13.0 L Hct 39.0 L MCV 87 MCH 29.0 MCHC 33.3 RDW 12.6 Plt Count 174 MPV 11.7 H Immature Gran % 0.4 Neutrophils % 78.5 Lymphocytes % 16.0 Monocytes % 5.0 Eosinophils % 0.0 Basophils % 0.1 Nucleated RBC % 0.0 Absolute Neutrophils 7.64 H Absolute Lymphocytes 1.56 Absolute Monocytes 0.49 Absolute Eosinophils 0.00 Absolute Basophils 0.01 D-Dimer VBG Lactate Sodium 141 Potassium 4.2 Chloride 103 Carbon Dioxide 29.1 Anion Gap 8.9 BUN 14 Creatinine 0.9 Est GFR (CKD-EPI 2020) 101.49 Glucose 157 H Calcium 9.6 Troponin I < 50 Procalcitonin 04/07/22 04/07/22 13:13 10:43 WBC RBC Hgb Hct MCV MCH MCHC RDW Plt Count MPV Immature Gran % Neutrophils % Lymphocytes % Monocytes % Eosinophils % Basophils % Nucleated RBC % Absolute Neutrophils Absolute Lymphocytes Absolute Monocytes Absolute Eosinophils Absolute Basophils D-Dimer 227 VBG Lactate 1.0 Sodium Potassium Chloride Carbon Dioxide Anion Gap BUN Creatinine Est GFR (CKD-EPI 2020) Glucose Calcium Troponin I Procalcitonin 0.1 04/07/22 13:13 Blood Blood Culture - Pending 04/07/22 13:05 Blood Blood Culture - Pending Preliminary micro results at discharge 04/07/22 13:13 Blood Culture - Pending Blood 04/07/22 13:05 Blood Culture - Pending Blood PFSH All Active Problems (Updated 04/09/22 @ 00:08 by ANDRES DOSS) Pneumonia (Acute) Sinus tachycardia (Chronic) Osteoporosis (Chronic) BMI 25.0-25.9,adult (Acute) Hyperlipemia (Acute 09/21/17) BALJIT (obstructive sleep apnea) (Chronic 04/09/16) -BIPAP 10/05 WITH 3 LPM SUPPLEMENTAL OXYGEN Malignant neoplasm of skin (Acute) squamous cell Vitamin D deficiency (Chronic) Bipolar disorder (Chronic) not currently taking meds and symptoms stable COPD (chronic obstructive pulmonary disease) (Chronic) Medical History ADD (attention deficit disorder) (10/29/16) Bereavement due to life event (06/24/98) CHF (congestive heart failure) during hospitalization 2021 Depressive disorder (12/12/12) Diverticulitis Diverticulosis of colon (10/05/17) Emphysema (subcutaneous) resulting from a procedure, initial encounter Jul 2021 Mood disorder (03/15/18) Pneumothorax, right Jul/ Aug 2021 Post covid-19 condition, unspecified Situational anxiety (03/07/18) Smoker (12/12/12) former-stopped 2019 prior smoking since age 11 >40 pack year hx Surgical History History of herniorrhaphy History of surgical procedure (~08/26/21) thoracoscopy resect bullae- bronchoscopy, robotic assisted right thoracoscopic upper lobe wedge resections x3, atricure cryotherapy intercostal nerve block 5-9 ics Repair of inguinal hernia (~2007) 2008 right 2009 left Family History Mother , 78 Asthma COPD (chronic obstructive pulmonary disease) Daughter , 33 Brain tumor Depression Father , 78 COPD (chronic obstructive pulmonary disease) Son No problems noted. Son , 8 No problems noted. Social History Smoking/Tobacco Use Status: Former Tobacco Use tobacco type: cigarettes Quit Date: 07/26/19 Second Hand Exposure: Yes Smoking risk assessment performed?: Yes Alcohol Intake: former Drug use: Never Substance use type: does not use Caregiver/Support person: No Household members: spouse Housing: house Pets and animals: Yes Pets and animals: cat(s) and dog(s) Sexually active: Yes What is your relationship status?: How often do you talk on the phone with friends or family?: once per week How often do you get together with friends or relatives?: once per week How often do you attend roman catholic or judaism services?: decline to answer Do you belong to any clubs or organized social groups?: no Panel score (0-1 are the most socially isolated patients): 1 What type of physical activity do you participate in: none Duration: 45-60 minutes/day Seatbelt use: always Helmet use: Yes Helmet use: always Drive intox or ride w/intox regional company truck driver: No Do you feel safe at home: Yes Do you feel safe in your relationship?: Yes Additional Social history: , with adult children. Ongoing tobacco use, 1/2 to 1 pack daily with prior 2 ppd history, approximate 55 pack year history. Reports prior ETOH excess, none in 20 years. Denies illicit drugs.
--- NOTE | 2022-04-08 13:52 | NUR.NOTE ---
Nursing Note: [facility] called for follow-up: date 04/30 at 13:20 or 1:20PM with Dr. Cohn
--- NOTE | 2022-04-08 15:08 | PDOC.HHF2F ---
Home Health Certification Home Health Certification: 1. Encounter Date and Reason I certify that Jakob Malagon was seen by Ki Paul MD on 04/08/22 and that I had a [id number] encounter with this patient that meets the physician face to face encounter requirements. 2. Clinical Findings Supporting Skilled Need and Homebound Status I certify that home health services are medically necessary, include either intermittent long term and/or physical/speech therapy, and that this patient is homebound in that absences from the home require considerable and taxing effort and are infrequent or of short duration, or are attributable to the need to receive medical care. [X] (a) Attached documentation from encounter provides clinical findings supporting skilled need and homebound status (including what assistance patient requires to leave the home). The encounter with the patient was in whole, or in part, for the following medical condition, which is the primary reason for home health care: Pneumonia, COPD Exacerbation Correction:Monitor patients medical condition, instruct on medication regimen and signs and symptoms to report. Pt is at risk of decompensation and/or adverse events due to recent hsopitalization Physical Therapy: Occupational Therapy: Evaluate and treat for patients diminished ability to perform ADL/IALD/self care. Speech Therapy: WAGE AND HOUR INVESTIGATOR: assist with community resources. Homebound: 3. Certification and Authentication I certify that I composed the above information based on my clinical judgement relating to this patient's medical condition and, if applicable, clinical findings communicated to me by the NPP or inpatient physician who performed the Home Health Referral. All further orders will be obtained through Lani Valencia (Community Based Physician - PCP)
--- NOTE | 2022-04-08 19:07 | CMDISCH_ITS ---
- If Service Date Differs Date of service: 04/08/22 Time of Service: 19:07 LACE Index Scoring Tool - Questions: Length of Stay (in days): 1 Acuity (Admit via E.D.?): Yes Comorbidities: Congestive Heart Failure, Chronic Pulmonary Disease E.D. Visits: 1 - Answers: Total Score: 10 Risk of Readmission: High Risk Care Management Discharge Reason for Hospitalization: Pneumonia, COPD exacerbation Discharge Plan: Jakob will return home today with new orders for HH RN, OT, [employer]EL[employer]. CM sent a referral for out patient palliative care as well, to discuss goals of care. His will drive him home via private vehicle. He will follow up with his PCP and discharge plan of care. Patient/Family Education Needs: Review discharge instructions and limitations, discussion of self care needs including ask me three. Services Needed at Discharge: Home Health Care Services
== END 2022-04-08 14:00 | disposition home or self-care (01) | DRG 190 ==
LOC: ER 13:04 → ICU 14:22
PROVIDERS: Admitting Provider Family Medicine; Emergency Provider Physician Assistant; PCP Nurse Practitioner; Visit Provider Family Medicine
DX: J44.0 Chronic obstructive pulmonary disease with (acute) lower respiratory infection (principal); J18.9 Pneumonia, unspecified organism; J44.1 Chronic obstructive pulmonary disease with (acute) exacerbation; G47.33 Obstructive sleep apnea (adult) (pediatric); I50.9 Heart failure, unspecified; F98.8 Other specified behavioral and emotional disorders with onset usually occurring in childhood and adolescence; F31.9 Bipolar disorder, unspecified; R00.0 Tachycardia, unspecified; M81.0 Age-related osteoporosis without current pathological fracture; E78.5 Hyperlipidemia, unspecified; E55.9 Vitamin D deficiency, unspecified; Z87.891 Personal history of nicotine dependence; K57.30 Diverticulosis of large intestine without perforation or abscess without bleeding
CPT/HCPCS: 36415; 80048; 80053; 82805; 84145; 87040; 87637; 93005; 94640; 96361; 96365; 96368; 96372; 96375; 99291; J1650; 36600; 71045; 83605; 83735; 83880; 84484; 85025; 85379; 93010; 94660; 99223; 99239; J0456; J0696; J2270; J2405; J3490; J7613; J7614; J7644